=== PATIENT | female | born 1930 | race Caucasian/White ===

== ENCOUNTER → 2016-09-07 | Outpatient (CLI) | payer MEDICARE, BC ==
[~2016-09-07] MED LIST: ACET-2321 PO; ACET-2723 PO; ALLO100T PO; APIX5TAB PO; CLIN300C86 PO; COLE625T PO; CRAN405C PO; DEXT15DR27 BOTH EYES; DONE10TA PO; FERR324T4 PO; FURO-153 PO; GLUC100015 PO; LEVO50TA11 PO; LISI10TA7 PO; LORA-204 PO; LORA0.5T2 PO; METO-277 PO; MIRT15TA PO; MULT-37 PO; MV-M1TAB38 PO; OLAN10TA3 PO; OMEG1CAP38 PO; OMEP-122 PO; POLY17PO2 PO; POTA10CA37 PO; SODI1TAB3 PO; SODI50SP EA NOSTRIL; VITA42.5 TOP; [UNRECOGNIZED DRUG - CODE] PO; [UNRECOGNIZED DRUG - CODE] PO
[2016-09-07 07:44] LABS: THYROID STIM HORMONE-TSH 2.86 MIU/L (0.47-4.68)
[2016-09-07 08:03] LABS: URIC ACID 5.1 MG/DL (2.5-7.5)
== END ==
LOC: LABNH.PM 00:40
PROVIDERS: ATTEND Family Medicine
DX: E03.9 Hypothyroidism, unspecified (principal); Z79.899 Other long term (current) drug therapy
CPT/HCPCS: 36415; 84443; 84550

== ENCOUNTER → 2016-09-13 | Outpatient (CLI) | payer MEDICARE, BC ==
[2016-09-13 13:47] LABS: BLOOD, URINE NEGATIVE (NEGATIVE); COLOR,URINE YELLOW (YELLOW); LEUKOCYTE ESTERASE ,URINE NEGATIVE (NEGATIVE); NITRITE,URINE NEGATIVE (NEGATIVE); UROBILINOGEN,URINE 0.2 EU/DL (NORMAL)
== END ==
LOC: LABN.PM 13:34
PROVIDERS: ATTEND Psychiatry & Neurology Psychiatry
DX: N39.0 Urinary tract infection, site not specified (principal)
CPT/HCPCS: 81003

== ENCOUNTER → 2016-09-14 | Outpatient (CLI) | payer MEDICARE, BC ==
[2016-09-14 07:09] LABS: BASOPHILS % (AUTO) 0.3 % (0-2); EOSINOPHILS # (AUTO) 0.1 T/MM3 (0-0.5); EOSINOPHILS % (AUTO) 2.1 % (0-4); HGB - HEMOGLOBIN 10.6 GM/DL (12-16); IMMATURE GRANULOCYTE # (AUTO) 0.01 T/MM3 (0.00-0.03); IMMATURE GRANULOCYTE % (AUTO) 0.1 % (0.0-0.5); LYMPHOCYTES # (AUTO) 3.1 T/MM3 (1-4.8); LYMPHOCYTES % (AUTO) 46.1 % (23-45); MEAN CORPUSCULAR HGB 31.6 UUG (26-34); MEAN CORPUSCULAR HGB CONC(MCHC 33.1 GM/DL (31-37); MEAN CORPUSCULAR VOLUME 95.5 UM3 (80-100); MEAN PLATELET VOLUME 9.3 UM3 (9.4-12.4); MONOCYTES # (AUTO) 0.6 T/MM3 (0-0.8); MONOCYTES % (AUTO) 8.9 % (0-9.0); NEUTROPHILS #(AUTO)-ABSOLUTE 2.9 T/MM3 (1.8-7.7); NEUTROPHILS % (AUTO) 42.5 % (33-66); RED BLOOD COUNT 3.35 M/MM3 (4.00-5.20); WBC - WHITE BLOOD COUNT 6.7 T/MM3 (4.5-11.0)
[2016-09-14 07:23] LABS: ALKALINE PHOSPHATASE 73 U/L (38-126); ALT (SGPT) 31 U/L (9-52); ANION GAP 8 MEQ/L (5-15); AST (SGOT) 29 U/L (14-36); BUN/CREATININE RATIO 17 RATIO (6-26); CALCIUM 9.3 MG/DL (8.4-10.2); CHLORIDE 102 MEQ/L (98-107); CO2 - CARBON DIOXIDE 27 MEQ/L (22-30); CREATININE 1.3 MG/DL (0.7-1.2); GLOMERULAR FILTRATION RATE 39; GLUCOSE 86 MG/DL (65-110); POTASSIUM 4.7 MEQ/L (3.6-5); SODIUM 137 MEQ/L (134-144); TOTAL PROTEIN 5.9 G/DL (6.3-8.2)
[2016-09-15 01:40] LABS: IRON 55 UG/DL (37-170)
[2016-09-15 01:49] LABS: IRON % SAT (TRANSF %SAT)(CALC) 21 % (9-55); TOTAL IRON BINDING CAPACITY 264 UG/DL (261-497)
== END ==
LOC: LABNH.PM 02:08
PROVIDERS: ATTEND Family Medicine
DX: D64.9 Anemia, unspecified (principal); E87.1 Hypo-osmolality and hyponatremia; R53.83 Other fatigue; Z79.899 Other long term (current) drug therapy
CPT/HCPCS: 36415; 80053; 82728; 83540; 83550; 85025; P9604

== ENCOUNTER → 2016-10-12 | Outpatient (CLI) | payer MEDICARE, BC ==
[2016-10-12 07:23] LABS: ANION GAP 8 MEQ/L (5-15); BUN/CREATININE RATIO 19 RATIO (6-26); CALCIUM 9.2 MG/DL (8.4-10.2); CHLORIDE 101 MEQ/L (98-107); CO2 - CARBON DIOXIDE 27 MEQ/L (22-30); CREATININE 1.3 MG/DL (0.7-1.2); GLOMERULAR FILTRATION RATE 39; GLUCOSE 89 MG/DL (65-110); POTASSIUM 4.7 MEQ/L (3.6-5); SODIUM 136 MEQ/L (134-144)
== END ==
LOC: LABNH.PM 00:30
PROVIDERS: ATTEND Family Medicine
DX: E87.1 Hypo-osmolality and hyponatremia (principal)
CPT/HCPCS: 36415; 80048; P9604

== ENCOUNTER → 2016-10-14 | Outpatient (CLI) | payer MEDICARE, BC ==
[2016-10-14 16:03] LABS: BLOOD, URINE NEGATIVE (NEGATIVE); COLOR,URINE YELLOW (YELLOW); LEUKOCYTE ESTERASE ,URINE NEGATIVE (NEGATIVE); NITRITE,URINE NEGATIVE (NEGATIVE); UROBILINOGEN,URINE 0.2 EU/DL (NORMAL)
== END ==
LOC: LABN.PM 15:51
PROVIDERS: ATTEND Family Medicine
DX: N39.0 Urinary tract infection, site not specified (principal)
CPT/HCPCS: 81003